=== PATIENT | female | born 1955 | race Caucasian/White ===

== ENCOUNTER → 2017-03-26 | Outpatient (CLI) | payer BC ==
--- NOTE | 2017-03-26 10:00 | RAD ---
HISTORY: Bilateral hip pain Study: Bilateral hips two views each, AP pelvis Comparison: None Findings: The pelvic bones are intact as are the SI joints. The hip joints are bilaterally intact demonstratin g no evidence for erosive change. However there is moderately severe bilateral degenerative joint sp víctor narrowing and mild subchondral sclerosis. No fracture, lytic, or blastic lesion is identified. IMPRESSION: Moderate degenerative joint space narrowing in the hips bilaterally Reported By:
--- NOTE | 2017-03-26 10:00 | RAD ---
HISTORY: Bilateral hip pain and low back pain Study: Three-view lumbar spine Comparison: November 28, 2011 Findings: Vertebral alignment is normal. There is no spondylolisthesis. There is chronic mild anterior wedging of the L4 vertebral body. Mild to moderate loss of disc space height is evident at the L4-L5 and L5 -S1 levels with suggestion of mild degenerative endplate change. There is also mild multilevel chu nal osteophytosis. Facet hypertrophy is visualized, most significant at the L4-L5 and L5-S1 levels. IMPRESSION: 1. Lumbar spondylosis and facet hypertrophy as above Reported By:
== END ==
LOC: RAD 08:47
PROVIDERS: ATTEND Nurse Practitioner Family
DX: M25.551 Pain in right hip (principal); M25.552 Pain in left hip; M54.17 Radiculopathy, lumbosacral region
CPT/HCPCS: 72100; 73521

== ENCOUNTER → 2017-11-20 | Outpatient (CLI) | payer BC ==
[2017-11-20 11:46] LABS: BASOPHILS # (AUTO) 0.1 X10^3/uL (0.0-0.1); BASOPHILS % (AUTO) 0.6 % (0.2-1.0); EOSINOPHILS # (AUTO) 0.1 x10^3/uL (0.0-0.2); EOSINOPHILS % (AUTO) 0.8 % (0.9-2.9); HEMATOCRIT 37.3 % (36.0-47.0); HEMOGLOBIN 12.6 g/dL (12.0-16.0); LYMPHOCYTES # (AUTO) 1.4 X10^3/uL (1.3-2.9); LYMPHOCYTES % (AUTO) 17.6 % (21.0-51.0); MEAN CORPUSCULAR HEMOGLOBIN 30.5 pg (27.0-34.0); MEAN CORPUSCULAR HGB CONC 33.8 g/dL (33.0-35.0); MEAN CORPUSCULAR VOLUME 90.2 fL (80.0-100.0); MEAN PLATELET VOLUME 8.1 fL (7.4-11.0); MONOCYTES # (AUTO) 0.5 x10^3/uL (0.3-0.8); NEUTROPHILS # (AUTO) 6.1 x10^3/uL (2.2-4.8); PLATELET COUNT 308 X10^3/uL (150.0-450.0); RED BLOOD COUNT 4.14 X10^6/uL (3.5-5.4); RED CELL DISTRIBUTION WIDTH 14.6 % (11.6-16.5); WHITE BLOOD COUNT 8.1 X10^3/uL (3.6-10.0)
[2017-11-20 11:49] LABS: BLOOD UREA NITROGEN 22 mg/dL (7-18); CALCIUM 9.9 mg/dL (8.5-10.1); CARBON DIOXIDE 29.5 mmol/L (21-32); CHLORIDE 104 mmol/L (98-107); COR NA(FOR HYPERGLY) 142 mmol/L (136-145); CREATININE 1.04 mg/dL (0.55-1.02); SODIUM 141 mmol/L (136-145); eGFR BLACK RACES > 60 (>60); eGFR NON BLACK RACES 57 (>60)
== END ==
LOC: LAB 11:21
PROVIDERS: ATTEND Anesthesiology
DX: Z01.818 Encounter for other preprocedural examination (principal); I10 Essential (primary) hypertension; I44.7 Left bundle-branch block, unspecified; R73.03 Prediabetes; Z79.01 Long term (current) use of anticoagulants
CPT/HCPCS: 36415; 80048; 85025; 85610; 85730